=== PATIENT | female | born 1930 | race Caucasian/White ===

== ENCOUNTER 2019-12-19 21:49 | Emergency (ER) | payer OTHER ==
[~2019-12-19] VITALS: Ht 152.4 cm; Wt 49.4 kg
[2019-12-19] MEDS ORDERED: AMLODIPINE BESYL5 MG (22:11)
[2019-12-19] MEDS ORDERED: ASPIR 8181 MG (22:12)
[2019-12-19] MEDS ORDERED: FOLIC ACID1 MG (22:12)
[2019-12-19] MEDS ORDERED: LOSARTAN POTAS100 MG (22:13)
[2019-12-19] MEDS ORDERED: LIPITOR20 MG (22:13)
[2019-12-19] MEDS ORDERED: LEVOTHYROXINE25 MCG (22:13)
[2019-12-19] MEDS ORDERED: NAMENDA10 MG (22:14)
[2019-12-19] MEDS ORDERED: TORSEMIDE10 MG (22:14)
[2019-12-19] MEDS ORDERED: [UNRECOGNIZED DRUG - OTHER] (22:15)
== END 2019-12-20 17:43 | disposition home or self-care (01) ==
LOC: ER 21:49
DX: G45.8 Other transient cerebral ischemic attacks and related syndromes (principal); E87.6 Hypokalemia; Z03.818 Encounter for observation for suspected exposure to other biological agents ruled out; R53.1 Weakness; R53.83 Other fatigue; G30.8 Other Alzheimer's disease; F02.80 Dementia in other diseases classified elsewhere, unspecified severity, without behavioral disturbance, psychotic disturbance, mood disturbance, and anxiety